=== PATIENT | male | born 1950 | race Caucasian/White ===

== ENCOUNTER → 2018-05-24 | Outpatient (CLI) | payer MEDICARE | END | disposition home or self-care (01) | LOC: RADNMMAIN 12:34 | PROVIDERS: ATTEND Surgery | DX: Z53.9 Procedure and treatment not carried out, unspecified reason (principal) ==

== ENCOUNTER → 2018-05-28 | Day surgery (SDC) | payer MEDICARE ==
[2018-05-23 15:31] VITALS: BMI 45.6
[~2018-05-28] MED LIST: LACTATED RINGERS 1,000 ML IV ONE; LACTATED RINGERS 1,000 ML IV SCH; LIDOCAINE 1% 20 ML VIAL (10MG/ML) FOR IV START INTRADERMA ONE; LIDOCAINE 1% INJ 10MG/ML (20 ML MDV) ONE; PROPOFOL 10 MG/ML 20 ML VIAL IV ONE; fentaNYL (PF) 50 MCG/ML 2 ML AMP ONE
[2018-05-28 07:13] VITALS: RESP 18; TEMP 98
[2018-05-28 07:25] LABS: Glucose,Whole Blood 140 mg/dL (75-99)
--- NOTE | 2018-05-28 08:18 | P.GSHP ---
History of Present Illness H&P Date: 05/28/18 Chief Complaint: GERD, constipation, diarrhea and right quadrant pain This is a 62-year-old male referred from Dr. Husain. Patient resents today for EGD colonoscopy. He's had issues with GERD abdominal pain diarrhea and right upper quadrant pain. Patient was scheduled for a HIDA scan 2 days ago however an IV could not be placed at that time. Patient will undergo HIDA scan today after his procedures. Past Medical History Past Medical History: Diabetes Mellitus, GERD/Reflux, Hyperlipidemia, Hypertension, Prostate Disorder, Sleep Apnea/CPAP/BIPAP Additional Past Medical History / Comment(s): LT KIDNEY SMALLER THAN RT. BACK PAIN. HAS RUPTURED HERNIAS-BILAT GROINS AND UMBILICAL History of Any Multi-Drug Resistant Organisms: None Reported Past Surgical History: Appendectomy, Heart Catheterization Additional Past Surgical History / Comment(s): TURP. LT KIDNEY TUBE SX. COLONOSCOPY Past Anesthesia/Blood Transfusion Reactions: No Reported Reaction Smoking Status: Former smoker - Past Family History Mother Family Medical History: No Reported History Medications and Allergies Home Medications Medication Instructions Recorded Confirmed Type Acetaminophen Tab [Tylenol Tab] 1,000 mg PO Q6HR PRN 05/23/18 05/23/18 History Aspirin [Adult Low Dose Aspirin EC] 81 mg PO DAILY 05/23/18 05/23/18 History Atorvastatin [Lipitor] 40 mg PO HS 05/23/18 05/23/18 History Bethanechol [Urecholine] 25 mg PO DAILY PRN 05/23/18 05/23/18 History Cholecalciferol (Vitamin D3) 2,000 unit PO DAILY 05/23/18 05/23/18 History [Vitamin D3] Cyanocobalamin (Vitamin B-12) 2,000 mcg PO DAILY 05/23/18 05/23/18 History [Vitamin B-12] L.acidoph,Paracasei, B.lactis 1 each PO DAILY 05/23/18 05/23/18 History [Probiotic] Lisinopril [Zestril] 20 mg PO DAILY 05/23/18 05/23/18 History Metoprolol Tartrate 25 mg PO BID 05/23/18 05/23/18 History Pantoprazole [Protonix] 40 mg PO DAILY 05/23/18 05/23/18 History Stool Softener 1 each PO DAILY 05/23/18 History Tamsulosin [Flomax] 0.4 mg PO HS 05/23/18 05/23/18 History metFORMIN HCL [Glucophage] 500 mg PO BID 05/23/18 05/23/18 History Allergies Allergy/AdvReac Type Severity Reaction Status Date / Time No Known Allergies Allergy Verified 05/23/18 15:13 Surgical - Exam Vital Signs Temp Pulse Resp BP Pulse Ox 98.0 F 60 18 124/80 96 05/28/18 07:12 05/28/18 07:12 05/28/18 07:12 05/28/18 07:12 05/28/18 07:12 - General well developed, no distress - Eyes PERRL - ENT normal pinna - Neck no masses - Respiratory normal expansion - Cardiovascular Rhythm: regular - Abdomen Abdomen: soft, non tender Results - Labs Abnormal Lab Results - Last 24 Hours (Table) 05/28/18 Range/Units 07:23 POC Glucose (mg/dL) 140 H (75-99) mg/dL Assessment and Plan Assessment: GERD, constipation, diarrhea and right quadrant pain. We'll perform EGD and colonoscopy.
--- NOTE | 2018-05-28 08:38 | P.OP ---
Date of Procedure: 05/28/18 Preoperative Diagnosis: GERD Constipation Diarrhea Postoperative Diagnosis: Antral gastritis Sliding hiatal hernia Esophagitis Mild diverticulosis Random rectal biopsy pathology pending Procedure(s) Performed: EGD Colonoscopy Anesthesia: MAC Surgeon: Norris Schwab Pathology: other (Antrum, esophagus, rectum) Condition: stable Disposition: PACU Description of Procedure: Patient's placed on the endoscopy table lateral position. He received IV sedation. The gastroscope placed oropharynx passed in the esophagus into the stomach. Scope was then placed through the pylorus. The first and second portion of the duodenum appeared normal. Scope was then brought back the antrum this was mildly inflamed. A biopsies. Scope was then retroflexed and the remainder of the stomach appeared normal. There was a small sliding hiatal hernia. The distal esophagus appeared inflamed. The GE junction was at 38 cm. The distal esophagus was biopsied. The proximal esophagus appeared normal. Scope was withdrawn for patient. Next digital rectal exam was performed which revealed some mild internal hemorrhoids. Flexible colonoscope was placed patient anus passed throughout the entire colon. The ileocecal valve sutures. The cecum, ascending and transverse colon appeared normal. In the descending; was a few scattered diverticula. Scope was then brought back the rectum this appeared normal. However due the patient's symptoms diarrhea a random rectal biopsies performed. Scope was withdrawn for patient.
[2018-05-28 08:59] VITALS: BP 128/78; PULSE 60
--- NOTE | 2018-05-28 14:07 | NM ---
EXAMINATION TYPE: NM hepatobiliary w CCK DATE OF EXAM: 05/28/2018 COMPARISON: NONE INDICATION: Right upper quadrant pain TECHNIQUE: After the intravenous administration of 4.91 mCi Tc 99m Mebrofenin hepatobiliary scintigra phy is performed. Images were obtained immediately post injection. FINDINGS: There is prompt uptake and excretion of radiotracer by the liver. Extrahepatic ducts are identified at 12 minutes. The gallbladder is visualized within 28 minutes. Small bowel activity is noted within 16 minutes. At one hour CCK was administered, patient was injected with 2.3 mcg of Kinevac, and gallbladder eject ion fraction is calculated at 28 %, which is low. (Normal >35% and <80%.). IMPRESSION: 1. Biliary hypokinesia with an ejection fraction 28%.
== END | disposition home or self-care (01) ==
LOC: ORWHC2ENDO 06:54
PROVIDERS: ATTEND Surgery
DX: K21.0 Gastro-esophageal reflux disease with esophagitis (principal); K44.9 Diaphragmatic hernia without obstruction or gangrene; K64.8 Other hemorrhoids; K57.30 Diverticulosis of large intestine without perforation or abscess without bleeding; I10 Essential (primary) hypertension; E78.5 Hyperlipidemia, unspecified; E11.9 Type 2 diabetes mellitus without complications; I25.10 Atherosclerotic heart disease of native coronary artery without angina pectoris; Z79.82 Long term (current) use of aspirin; Z87.891 Personal history of nicotine dependence; K29.70 Gastritis, unspecified, without bleeding; Z99.89 Dependence on other enabling machines and devices; G47.30 Sleep apnea, unspecified
CPT/HCPCS: 88305; 78227; 45380; 43239; A9537; J2805; J2001; J3010; J2704

== ENCOUNTER 2018-06-21 07:32 | Day surgery (SDC) | payer MEDICARE ==
[2018-06-18 11:24] VITALS: BMI 45.6
[~2018-06-21 07:32] MED LIST changes: +HEPARIN SODIUM,PORCINE 5,000 UNIT/ML 1 ML VIAL SQ ONE; -LACTATED RINGERS 1,000 ML IV ONE; -LACTATED RINGERS 1,000 ML IV SCH; -LIDOCAINE 1% 20 ML VIAL (10MG/ML) FOR IV START INTRADERMA ONE; -LIDOCAINE 1% INJ 10MG/ML (20 ML MDV) ONE; -PROPOFOL 10 MG/ML 20 ML VIAL IV ONE; -fentaNYL (PF) 50 MCG/ML 2 ML AMP ONE
[2018-06-21 08:28] LABS: Glucose,Whole Blood 128 mg/dL (75-99)
[2018-06-21] MEDS ORDERED: LACTATED RINGERS 1,000 ML IV ONE ×2 (08:30→09:41)
[2018-06-21] MEDS ORDERED: LIDOCAINE 1% 20 ML VIAL (10MG/ML) FOR IV START INTRADERMA ONE (08:30)
[2018-06-21] MEDS ORDERED: ONDANSETRON 4 MG/2 ML VIAL IVP ONE (08:35)
[2018-06-21] MEDS ORDERED: DEXAMETHASONE SOD PHOSPHATE 10 MG/ML 1 ML VIAL IV ONE (08:36)
--- NOTE | 2018-06-21 08:51 | P.GSHP ---
History of Present Illness H&P Date: 06/21/18 Chief Complaint: Right upper quadrant pain This is a 68-year-old male referred from Dr. Armstrong. Patient's echo was run quadrant pain. His recent HIDA scan scope was then abnormal ejection fraction consistent with chronic cholecystitis. He presents today for laparoscopic cholecystectomy. Past Medical History Past Medical History: Diabetes Mellitus, GERD/Reflux, Hyperlipidemia, Hypertension, Prostate Disorder, Sleep Apnea/CPAP/BIPAP Additional Past Medical History / Comment(s): LT KIDNEY SMALLER THAN RT. BACK PAIN. HAS RUPTURED HERNIAS-BILAT GROINS AND UMBILICAL, hx of pancreatitis. History of Any Multi-Drug Resistant Organisms: None Reported Past Surgical History: Appendectomy, Heart Catheterization Additional Past Surgical History / Comment(s): TURP. LT KIDNEY TUBE SX. COLONOSCOPY Past Anesthesia/Blood Transfusion Reactions: No Reported Reaction Smoking Status: Former smoker - Past Family History Mother Family Medical History: No Reported History Medications and Allergies Home Medications Medication Instructions Recorded Confirmed Type Acetaminophen Tab [Tylenol Tab] 1,000 mg PO Q6HR PRN 05/23/18 06/21/18 History Aspirin [Adult Low Dose Aspirin EC] 81 mg PO DAILY 05/23/18 06/21/18 History Atorvastatin [Lipitor] 40 mg PO HS 05/23/18 06/21/18 History Bethanechol [Urecholine] 25 mg PO DAILY PRN 05/23/18 06/21/18 History Cholecalciferol (Vitamin D3) 2,000 unit PO DAILY 05/23/18 06/21/18 History [Vitamin D3] Cyanocobalamin (Vitamin B-12) 2,000 mcg PO DAILY 05/23/18 06/21/18 History [Vitamin B-12] L.acidoph,Paracasei, B.lactis 1 each PO DAILY 05/23/18 06/21/18 History [Probiotic] Lisinopril [Zestril] 20 mg PO DAILY 05/23/18 06/21/18 History Metoprolol Tartrate 25 mg PO BID 05/23/18 06/21/18 History Pantoprazole [Protonix] 40 mg PO DAILY 05/23/18 06/21/18 History Stool Softener 1 each PO DAILY 05/23/18 06/21/18 History Tamsulosin [Flomax] 0.4 mg PO HS 05/23/18 06/21/18 History metFORMIN HCL [Glucophage] 500 mg PO BID 05/23/18 06/21/18 History Allergies Allergy/AdvReac Type Severity Reaction Status Date / Time No Known Allergies Allergy Verified 06/21/18 08:11 Surgical - Exam Vital Signs Temp Pulse Resp BP Pulse Ox 97.8 F 59 L 16 134/82 98 06/21/18 08:24 06/21/18 08:24 06/21/18 08:24 06/21/18 08:24 06/21/18 08:24 - General well developed, no distress - Eyes PERRL - ENT normal pinna - Neck no masses - Respiratory normal expansion - Cardiovascular Rhythm: regular - Abdomen Abdomen: soft, non tender Results - Labs Abnormal Lab Results - Last 24 Hours (Table) 06/21/18 Range/Units 08:21 POC Glucose (mg/dL) 128 H (75-99) mg/dL Assessment and Plan Assessment: Chronic cholecystitis. We'll perform laparoscopic cholecystectomy.
[2018-06-21] MEDS ORDERED: SUCCINYLCHOLINE CHLORIDE 100 MG/5 ML SYR IV ONE (09:09)
[2018-06-21] MEDS ORDERED: ROCURONIUM BROMIDE 10 MG/ML 10 ML VIAL IV ONE (09:09)
[2018-06-21] MEDS ORDERED: PROPOFOL 10 MG/ML 20 ML VIAL IV ONE (09:09)
[2018-06-21] MEDS ORDERED: MIDAZOLAM 2 MG/2 ML VIAL ONE (09:09)
[2018-06-21] MEDS ORDERED: LIDOCAINE 1% INJ 10MG/ML (20 ML MDV) ONE (09:09)
[2018-06-21] MEDS ORDERED: ePHEDrine SULFATE/0.9% NACL/PF 50 MG/5 ML SYRINGE IV ONE (09:09)
[2018-06-21] MEDS ORDERED: KETOROLAC 30 MG/ML 1 ML VIAL ONE (09:09)
[2018-06-21] MEDS ORDERED: NEOSTIGMINE 1 MG/ML 10 ML VIAL ONE (09:09)
[2018-06-21] MEDS ORDERED: GLYCOPYRROLATE 0.2 MG/ML 2 ML VIAL ONE (09:09)
[2018-06-21] MEDS ORDERED: fentaNYL (PF) 50 MCG/ML 2 ML AMP ONE (09:09)
[2018-06-21] MEDS ORDERED: BUPIVACAIN-EPI 0.5%-1:200,000 30 ML VIAL SQ ONE (09:42)
[2018-06-21 10:15] VITALS: TEMP 97
[2018-06-21 10:26] VITALS: RESP 16
[2018-06-21 10:50] LABS: Glucose,Whole Blood 177 mg/dL (75-99)
[2018-06-21] MEDS ORDERED: HYDROcodone/APAP 10-325MG 1 EACH TAB PO ONE (11:14)
[2018-06-21 13:36] VITALS: BP 119/61; PULSE 67
[2018-06-21] MEDS ORDERED: TAMSULOSIN 0.4 MG CAP.ER.24H PO STA (13:51)
--- NOTE | 2018-06-25 12:43 | P.OP ---
Date of Procedure: 06/21/18 Preoperative Diagnosis: biliary dyskinesia Postoperative Diagnosis: biliary dyskinesia Procedure(s) Performed: laparoscopic cholecystectomy Anesthesia: STACIE Surgeon: Norris Schwab Estimated Blood Loss (ml): 5 Pathology: other (gallbladder) Condition: stable Disposition: PACU Description of Procedure: The patient was placed on the operating table. The patient received a general endotracheal tube anesthesia. The patients abdomen was prepped and draped in the usual sterile fashion. Through an infraumbilical stab incision, the fascia of the anterior abdominal wall was grasped with a pair of Kochers and then the Veress needle was placed in the peritoneal cavity. Position of the Veress needle was confirmed with positive drop test. The abdomen was then insufflated. After adequate insufflation, the 10 mm trocar was placed in the peritoneal cavity. Following this the laparoscope was placed in the peritoneal cavity. The patient was placed in the head-up, right side up position and then a 5 mm trocar was placed in the right lateral and right subcostal position under direct visualization. A 8 mm trocar was placed in the epigastric position. is The gallbladder was grasped in the fundus and infundibulum. Traction on the gallbladder was placed in the lateral and the cephalad positions. The triangle of Calot was visualized.. The cystic duct was bluntly dissected until the union of the cystic duct and common bile duct was seen. The cystic duct was then divided and sealed with the Harmonic scissors. A PDS Endoloop was then placed throughout the cystic duct stump. The cystic artery divided and sealed with the Harmonic scissors. The gallbladder was then removed from the liver bed using Harmonic scissors. The gallbladder was then extracted through the epigastric port site. Operative field was checked for any bleeding spots and Harmonic scissors was used to coagulate the liver bed. The abdomen was irrigated. The trocars were removed. The skin was closed using interrupted 3-0 Vicryl suture. Dermabond dressing were applied. The patient tolerated the procedure well.
== END 2018-06-21 14:30 | disposition home or self-care (01) ==
LOC: OR 07:32
PROVIDERS: ATTEND Surgery
DX: K81.1 Chronic cholecystitis (principal); E11.9 Type 2 diabetes mellitus without complications; E78.5 Hyperlipidemia, unspecified; I10 Essential (primary) hypertension; K21.9 Gastro-esophageal reflux disease without esophagitis; G47.30 Sleep apnea, unspecified; N42.9 Disorder of prostate, unspecified; Z87.891 Personal history of nicotine dependence; Z99.89 Dependence on other enabling machines and devices; Z79.84 Long term (current) use of oral hypoglycemic drugs; Z79.82 Long term (current) use of aspirin; Z79.899 Other long term (current) drug therapy
CPT/HCPCS: 88304; 47562; J2250; J1644; J1100; J2710; J0690; J2405; J2001; J3010; J1885; J0330; J2704

== ENCOUNTER → 2018-07-15 | Outpatient (CLI) | payer MEDICARE ==
[2018-07-15 14:15] LABS: Blood Urea Nitrogen 19 mg/dL (9-20)
--- NOTE | 2018-07-15 16:16 | CT ---
EXAMINATION TYPE: CT abdomen pelvis w con DATE OF EXAM: 07/15/2018 COMPARISON: None HISTORY: Bilateral inguinal hernia. CT DLP: 4266 mGycm CONTRAST: CT scan of the abdomen and pelvis is performed with Oral Contrast and with IV Contrast, patient injec carmela with 100 mL of Isovue M300. FINDINGS: LUNG BASES-: No visible nodule. No infiltrate. LIVER/GB: Cholecystectomy clips are in place. No space occupying hepatic lesion. Biliary tree is o f normal caliber. PANCREAS: No inflammation. No distinct mass. SPLEEN: No splenic enlargement. No lesion seen. ADRENALS: No nodule. No thickening. KIDNEYS/BLADDER: No hydronephrosis. No nephrolithiasis. No distinct renal mass. Urinary bladder g rossly unremarkable. BOWEL: Normal appendix. Normal bowel caliber. No inflammation. GENITAL ORGANS: No gross abnormality. LYMPH NODES: No greater than 1cm abdominal or pelvic lymph nodes are appreciated. AORTA: No significant abnormality. OSSEOUS STRUCTURES: No significant abnormality is seen. OTHER: Fat-containing umbilical hernia. IMPRESSION: 1. Fat-containing inguinal hernias.
== END | disposition home or self-care (01) ==
LOC: RADCTMAIN 13:28
PROVIDERS: ATTEND Surgery
DX: K40.90 Unilateral inguinal hernia, without obstruction or gangrene, not specified as recurrent (principal)
CPT/HCPCS: 82565; 84520; 74177; 36415; Q9967

== ENCOUNTER 2018-07-24 07:32 | Day surgery (SDC) | payer MEDICARE ==
[2018-07-22 14:15] VITALS: BMI 45.6
[~2018-07-24 07:32] MED LIST changes: +HYDROmorphone 1 MG/ML 1 ML SYRINGE IVP PRN
[2018-07-24] MEDS: LACTATED RINGERS 1,000 ML IV SCH (08:55)
[2018-07-24] MEDS ORDERED: LIDOCAINE 1% 20 ML VIAL (10MG/ML) FOR IV START INTRADERMA ONE (08:56)
--- NOTE | 2018-07-24 09:09 | P.GSHP ---
History of Present Illness H&P Date: 07/24/18 Chief Complaint: Bilateral inguinal hernias and umbilical hernia This is a 68-year-old male who presents today for laparoscopic robotic-assisted repair of bilateral inguinal hernias and umbilical hernia. Patient complaints of pain in his bilateral groins. Past Medical History Past Medical History: Diabetes Mellitus, GERD/Reflux, Hyperlipidemia, Hypertension, Prostate Disorder, Sleep Apnea/CPAP/BIPAP Additional Past Medical History / Comment(s): LT KIDNEY SMALLER THAN RT. BACK PAIN. HAS RUPTURED HERNIAS-BILAT GROINS AND UMBILICAL, hx of pancreatitis. History of Any Multi-Drug Resistant Organisms: None Reported Past Surgical History: Appendectomy, Cholecystectomy, Heart Catheterization Additional Past Surgical History / Comment(s): TURP. LT KIDNEY TUBE SX. COLONOSCOPY, egd Past Anesthesia/Blood Transfusion Reactions: No Reported Reaction Smoking Status: Former smoker - Past Family History Mother Family Medical History: No Reported History Medications and Allergies Home Medications Medication Instructions Recorded Confirmed Type Acetaminophen Tab [Tylenol Tab] 1,000 mg PO Q6HR PRN 05/23/18 07/24/18 History Aspirin [Adult Low Dose Aspirin EC] 81 mg PO DAILY 05/23/18 07/22/18 History Atorvastatin [Lipitor] 40 mg PO HS 05/23/18 07/24/18 History Bethanechol [Urecholine] 25 mg PO DAILY PRN 05/23/18 07/24/18 History Cholecalciferol (Vitamin D3) 2,000 unit PO DAILY 05/23/18 07/22/18 History [Vitamin D3] Cyanocobalamin (Vitamin B-12) 2,000 mcg PO DAILY 05/23/18 07/22/18 History [Vitamin B-12] L.acidoph,Paracasei, B.lactis 1 each PO DAILY 05/23/18 07/24/18 History [Probiotic] Lisinopril [Zestril] 20 mg PO DAILY 05/23/18 07/22/18 History Metoprolol Tartrate 25 mg PO BID 05/23/18 07/22/18 History Pantoprazole [Protonix] 40 mg PO DAILY 05/23/18 07/22/18 History Stool Softener 1 each PO DAILY 05/23/18 07/24/18 History Tamsulosin [Flomax] 0.4 mg PO HS 05/23/18 07/24/18 History metFORMIN HCL [Glucophage] 500 mg PO BID 05/23/18 07/24/18 History Docusate [Colace] 100 mg PO BID #20 capsule 06/21/18 07/22/18 Rx HYDROcodone/APAP 7.5-325MG [[place] 1 tab PO Q4H PRN 3 Days #18 tab 06/21/1807/24 Rx 7.5-325] Allergies Allergy/AdvReac Type Severity Reaction Status Date / Time No Known Allergies Allergy Verified 07/22/18 14:11 Surgical - Exam Vital Signs Temp Pulse Resp BP Pulse Ox 97.6 F 58 L 18 129/65 98 07/24/18 08:23 07/24/18 08:23 07/24/18 08:23 07/24/18 08:23 07/24/18 08:23 - General well developed, no distress - Eyes PERRL - ENT normal pinna - Neck no masses - Respiratory normal expansion - Cardiovascular Rhythm: regular - Abdomen Abdomen: soft Hernia: inguinal (Bilateral), umbilical (2 cm) Assessment and Plan Assessment: Bilateral inguinal hernia. Umbilical hernia. We'll perform laparoscopic robotic-assisted repair.
[2018-07-24 09:10] LABS: Glucose,Whole Blood 137 mg/dL (75-99)
[2018-07-24] MEDS ORDERED: DEXAMETHASONE SOD PHOSPHATE 10 MG/ML 1 ML VIAL IV ONE (09:14)
[2018-07-24] MEDS ORDERED: ONDANSETRON 4 MG/2 ML VIAL IVP ONE (09:14)
[2018-07-24] MEDS ORDERED: MIDAZOLAM 2 MG/2 ML VIAL IVP ONE (09:30)
[2018-07-24] MEDS ORDERED: NEOSTIGMINE 1 MG/ML 10 ML VIAL ONE (09:38)
[2018-07-24] MEDS ORDERED: KETOROLAC 30 MG/ML 1 ML VIAL ONE (09:38)
[2018-07-24] MEDS ORDERED: GLYCOPYRROLATE 0.2 MG/ML 2 ML VIAL ONE (09:38)
[2018-07-24] MEDS ORDERED: ROPIVACAINE 5 MG/ML 30 ML VIAL ONE (09:38)
[2018-07-24] MEDS ORDERED: LIDOCAINE 1% INJ 10MG/ML (20 ML MDV) ONE (09:38)
[2018-07-24] MEDS ORDERED: fentaNYL (PF) 50 MCG/ML 2 ML AMP ONE (09:38)
[2018-07-24] MEDS ORDERED: MIDAZOLAM 2 MG/2 ML VIAL ONE (09:38)
[2018-07-24] MEDS ORDERED: MORPHINE SULFATE 10 MG/ML SYRINGE ONE (09:38)
[2018-07-24] MEDS ORDERED: ePHEDrine SULFATE/0.9% NACL/PF 50 MG/5 ML SYRINGE IV ONE (09:38)
[2018-07-24] MEDS ORDERED: ROCURONIUM BROMIDE 10 MG/ML 10 ML VIAL IV ONE (09:38)
[2018-07-24] MEDS ORDERED: PROPOFOL 10 MG/ML 20 ML VIAL IV ONE (09:38)
[2018-07-24] MEDS ORDERED: SUCCINYLCHOLINE CHLORIDE 100 MG/5 ML SYR IV ONE (09:38)
[2018-07-24] MEDS ORDERED: BUPIVACAIN-EPI 0.25%-1:200,000 30 ML VIAL SQ ONE ×2 (10:10)
[2018-07-24 11:41] VITALS: TEMP 96.8
[2018-07-24 12:29] VITALS: RESP 16
[2018-07-24] MEDS ORDERED: LACTATED RINGERS 1,000 ML IV ONE (12:45)
[2018-07-24] MEDS ORDERED: HYDROcodone/APAP 7.5-325MG 1 EACH TAB PO ONE (12:45)
--- NOTE | 2018-07-24 14:11 | P.ONQ ---
Anesthesiology Proc Note - PNB - Peripheral Nerve Block Performed Bilateral Rectus Abdominis Single Time Out Performed: Yes Procedure Start Time: Procedure Stop Time: Indication: Acute Post-Operative Pain, Requested by physician Sedation Type: Sedate with meaningful contact maintained Preparation: Sterile Prep Position: Supine Needle Size: 50mm (2") Needle Gauge: 21 Technique: Ultrasound Injectate: 0.5% Ropivacaine (see comment for volume) (ropi .5% 15cc each side) Blood Aspirated: No Pain Paresthesia on Injection Noted: No Resistance on Injection: Normal Events: Uneventful and Well Tolerated
[2018-07-24] MEDS ORDERED: TAMSULOSIN 0.4 MG CAP.ER.24H PO STA (14:21)
[2018-07-24] MEDS ORDERED: TAMSULOSIN 0.4 MG CAP.ER.24H PO ONE (14:37)
[2018-07-24 15:00] VITALS: BP 141/77; PULSE 63
--- NOTE | 2018-07-24 15:00 | P.OP ---
Date of Procedure: 07/24/18 Preoperative Diagnosis: Bilateral hernias Umbilical hernia incarcerated Postoperative Diagnosis: Bilateral inguinal hernias Incarcerated umbilical hernia Procedure(s) Performed: Laparoscopic robotic system repair of bilateral inguinal hernias (Repair of incarcerated umbilical hernia Partial omentectomy Anesthesia: STACIE Surgeon: Norris Schwab Estimated Blood Loss (ml): 5 Pathology: other (Omentum) Condition: stable Description of Procedure: The patient was placed on the operating table in the supine position. The patient received general anesthesia. The patient's abdomen was prepped and draped in usual sterile fashion. The skin was anesthetized 1% local Xylocaine at the incision sites. Using an 11 blade a skin incision was made at the umbilicus. The fascia was grasped with a [place] and then the peritoneal cavity was entered with the Veress needle. Position of the Veress needle was confirmed with a positive drop test. Patient had incarcerated umbilical hernia. The incarcerated omentum was dissected E transected with the Bovie. After adequate insufflation a 5 mm trocar was placed into the peritoneal cavity. The Laparoscope was placed the peritoneal cavity. And a robotic 8 mm trocar was placed in the right lateral position and then another 8 mm robotic trochars placed in the left lateral position. The original 5 mm trocar was exchanged for a 12 mm trocar. The patient was placed in reverse Trendelenburg and then the patient was docked to the robot. The right inguinal hernia was repaired. Next the peritoneum over top of the hernia was incised and then using blunt and sharp dissection and electrocautery the hernia sac was dissected free from the floor of the inguinal canal. The hernia sac was completely reduced into the peritoneal cavity. And then using the Pro level vial inside grinder mesh the hernia was repaired. The peritoneum was then sutured with 2-0V lock suture. Next, the left inguinal hernias repaired. Next the peritoneum over top of the hernia was incised and then using blunt and sharp dissection and electrocautery the hernia sac was dissected free from the floor of the inguinal canal. The hernia sac was completely reduced into the peritoneal cavity. And then using the Pro level vial inside grinder mesh the hernia was repaired. The peritoneum was then sutured with 2-0V lock suture. The patient was then undocked the robot. The needle was withdrawn from the peritoneal cavity. The umbilical hernia site was closed with 0 Ethibond suture. The skin was closed interrupted 3-0 Monocryl suture. Dermabond dressing was applied. Patient was sent to recovery in stable condition.
== END 2018-07-24 16:32 | disposition home or self-care (01) ==
LOC: OR 07:32
PROVIDERS: ATTEND Surgery
DX: K40.20 Bilateral inguinal hernia, without obstruction or gangrene, not specified as recurrent (principal); K42.0 Umbilical hernia with obstruction, without gangrene; E11.9 Type 2 diabetes mellitus without complications; K21.9 Gastro-esophageal reflux disease without esophagitis; E78.5 Hyperlipidemia, unspecified; I10 Essential (primary) hypertension; G47.33 Obstructive sleep apnea (adult) (pediatric); N40.0 Benign prostatic hyperplasia without lower urinary tract symptoms; E66.01 Morbid (severe) obesity due to excess calories; Z68.42 Body mass index [BMI] 45.0-49.9, adult; Z99.89 Dependence on other enabling machines and devices; Z79.82 Long term (current) use of aspirin; Z79.84 Long term (current) use of oral hypoglycemic drugs; Z79.899 Other long term (current) drug therapy; Z90.49 Acquired absence of other specified parts of digestive tract; Z87.891 Personal history of nicotine dependence
CPT/HCPCS: 88302; 49650; 49587; 64488; C1781; J2250; J1644; J1100; J2710; J2270; J0690; J2405; J2001; J3010; J1885; J2795; J0330; J2704